=== PATIENT | female | born 1990 ===

== ENCOUNTER 2019-03-27 06:10 | Emergency (ER) | payer SELFPAY ==
[~2019-03-27] VITALS: Ht 152.4 cm; Wt 68.0 kg
[2019-03-27] MEDS ORDERED: FLUORESCEIN (FLUOR-I-STRIPS) 1 MG STRP ONE ×2 (06:34→06:35)
[2019-03-27] MEDS ORDERED: TETRACAINE 0.5% OPHTH SOLN 4 ML BTL (SINGLE DOSE ONLY) ONE (06:34)
[2019-03-27] MEDS ORDERED: FLUORESCEIN (FLUOR-I-STRIPS) 1 MG STRP OU ONE (06:45)
[2019-03-27] MEDS ORDERED: TETRACAINE 0.5% OPHTH SOLN 4 ML BTL (SINGLE DOSE ONLY) OU ONE (06:45)
--- NOTE | 2019-03-27 06:50 | ED EENT ---
History of Present Illness General Stated Complaint: EYE IRRITATION Source: patient, other Exam Limitations: language barrier History of Present Illness Date Seen by Provider: Mar 27, 2019 Time Seen by Provider: 06:30 Initial Comments Patient presents to ER by private conveyance with her significant other. We used the [facility] line for interpretation. She says yesterday afternoon she was trying to put a hole fresh deodorizer tablet into her toilet and when she opened a package sprayed the dry powder up under her eyes. She is rub them and rinsed them with tap water for about 5-10 minutes and then used some leftover eyedrops from a few years ago. Polymyxin neomycin dexamethasone. Srikanth ingredient is essential oils and paradichlorobenzene. She's having difficulty seeing as well since. She says yesterday her vision was okay. She does not wear contacts or eyeglasses. She does not having any skin irritation. She is having minimal lacrimation and said that her eyes were red and irritated yesterday. Allergies and Home Medications Allergies Coded Allergies: No Known Drug Allergies (Unverified , 03/27/19) Patient Home Medication List Home Medication List Reviewed: Yes Review of Systems Review of Systems Constitutional: No chills, No diaphoresis Eyes: Denies Blindness; Blurred Vision; Denies Drainage; Decreased Acuity; Denies Foreign Body Sensation; Pain; Denies Photophobia Ears: Denies Dizziness, Denies Pain Nose: denies clots, denies congestion Mouth: denies clots, denies loose teeth Throat: denies pain, denies swelling Respiratory: No cough, No dyspnea on exertion Past Ouhxykm-[id number]-Yhkznj Hx Patient Social History Alcohol Use: Denies Use Recreational Drug Use: No Smoking Status: Never a Smoker Physical Exam Height, Weight, BMI Height: '" Weight: lbs. oz. kg; BMI Method: General Appearance: WD/WN, no apparent distress Eyes: bilateral eye normal inspection, bilateral eye PERRL, bilateral eye EOMI, bilateral eye other (funduscopic exam within normal limits. Wood's lamp examination with fluorescein staining demonstrates no overt corneal abrasion/ulceration.) Ears: bilateral ear auricle normal, bilateral ear canal normal Nose: normal inspection; No active bleeding Mouth/Throat: normal mouth inspection, pharynx normal Neck: full range of motion, normal inspection Cardiovascular: normal peripheral pulses, regular rate, rhythm Progress/Results/Core Measures Results/Orders My Orders Orders - TEGAN MADDEN Fluorescein Strips ([id number]) (03/27/19 06:34) Tetracaine 0.5% Ophth Demetrice Sdv (Tetracai (03/27/19 06:34) Tetracaine 0.5% Ophth Demetrice Sdv (Tetracai (03/27/19 06:45) Fluorescein Strips ([id number]-P-Nomflh) (03/27/19 06:45) Fluorescein Strips ([id number]-Z-Kzguwe) (03/27/19 06:35) Progress Progress Note #1: Time: 06:45 Progress Note Poison Control: Has normal pH. 15 mins flush and symptomatic treatment. Abx, +/- steroids. Consult eye doctor. Call back with the Eye exam results. Suspect Corneal abrasion. 20/20 right, 20/25 left and 20/25 bilateral Progress Note #2: Time: 07:21 Progress Note Discussed the case with Dr. campuzano, Optometry and she would like the patient to present to the clinic at 0 800. She would recommend TobraDex. Departure Impression Primary Impression: Chemical exposure of eye Disposition: 01 HOME, SELF-CARE Condition: Stable Departure-Patient Inst. Decision time for Depature: 07:22 Referrals: NO,LOCAL PHYSICIAN (PCP) Primary Care Physician Patient Instructions: Chemical Eye Injury (DC) Add. Discharge Instructions: Use the eyedrops as needed for irritation until you see the doctor. Follow-up at the optometry clinic [facility] at 0800. Work/School Note: Work Release Form Date Seen in the Emergency Department: Mar 27, 2019 Return to Work: Mar 28, 2019 Restrictions: No Restrictions TEGAN MADDEN Mar 27, 2019 06:50
[2019-03-27] MEDS ORDERED: BSS 15 ML IR ONE (07:30)
[2019-03-27 07:35] VITALS: BP 121/77
== END 2019-03-27 07:35 | disposition home or self-care (01) ==
LOC: ER 06:14
DX: H57.89 Other specified disorders of eye and adnexa (principal); Z77.098 Contact with and (suspected) exposure to other hazardous, chiefly nonmedicinal, chemicals
CPT/HCPCS: 99283